=== PATIENT | female | born 1960 | race Caucasian/White ===

== ENCOUNTER → 2016-08-28 | Outpatient (CLI) | payer BC ==
--- NOTE | ~2016-08-28 | CT57 ---
[facility] A Service of [facility] & [facility] RADIOLOGY TEXT RESULTS PATIENT: MK ZAZUETA [facility] 58 UNIT #: [id number] AGE: [address]: Cliff Bruce MD SEX: F ORDER DR: [id number] [facility] [address] [place], [place] [address] [id number] O MR#: [id number] Acc #: [id number] NAME: MK ZAZUETA : 1960 SEX: F STUDY DATE/TIME: 08/28/2016 9:16 UNIT: [facility] ROOM: STUDY DESCRIPTION: CT Chest Wo Cont Attending Physician: Cliff Bruce M.D. Referring Physician: Cliff Bruce M.D. Ordering Physician: Cliff Bruce M.D. Primary Care Physician: Cliff Bruce M.D. MEDICAL IMAGING REPORT This report is preliminary unless electronic signature is present EXAM CT scan of the chest without contrast INDICATIONS 56-year-old female with history of abnormality on recent CT scan. CT of the cervical spine demonstrated an abnormal appearance to the lung parenchyma within the left upper lobe. Study is performed as a followup. TECHNIQUE CT scan of the chest was performed without contrast. Coronal and sagittal reformatted images were obtained. This CT exam was performed with one or more of the following radiation dose reduction techniques: automatic exposure control, adjustment of mA and/or kV according to patient size, and iterative reconstruction. COMPARISON CT of the cervical spine from 08/06/2016 FINDINGS There are curvilinear densities in the medial left lung apex. When compared with the previous CT these densities have actually decreased. This findings may represent a resolving infectious or inflammatory process. Would suggest a short-interval followup chest CT in 2-3 months to document complete clearing. The lung valdez are otherwise clear. There is no lymphadenopathy or pleural effusion. Coronary artery calcification. Limited imaging of the upper abdomen is unremarkable. The bone windows are unremarkable. IMPRESSION Nonspecific left upper lobe parenchymal density has decreased since the prior CT scan. This may or representing a resolving infectious or inflammatory process. Would suggest another chest CTs and [id number] months to document complete clearing. [facility] A Service of [facility] & [facility] RADIOLOGY TEXT RESULTS PATIENT: MK ZAZUETA LOCATION: [facility] : 58 UNIT #: [id number] AGE: [address]: Cliff Bruce MD SEX: F ORDER DR: Dictated by... Daron Elliott M.D. THIS IS AN ELECTRONICALLY VERIFIED REPORT Daron Elliott M.D. at 08/28/2016 4:42 PM ARS/to TD: 08/28/2016 14:14 JOB #: [id number] MEDICAL IMAGING REPORT COPY
== END | disposition home or self-care (01) ==
LOC: CCAT 08:41
DX: J98.4 Other disorders of lung (principal)
CPT/HCPCS: 71250